=== PATIENT | female | born 1950 | race Caucasian/White ===

== ENCOUNTER 2018-10-15 06:17 | Day surgery (SDC) | payer BC, MEDICARE ==
[2018-10-15] MEDS ORDERED: Lidocaine 2% Jelly 30 ML Tube ONE (06:42)
[2018-10-15] MEDS ORDERED: Lidocaine 1% with EPINEPHrine 1:100,000 50 ML MDV ONE (06:43)
[2018-10-15] MEDS ORDERED: Bupivacaine 0.5% 50 ML MDV ONE (06:43)
[2018-10-15] MEDS ORDERED: fentaNYL 100 MCG/2 ML SDV ONE (07:02)
[2018-10-15] MEDS ORDERED: Propofol 200 MG/20 ML SDV ONE (07:03)
[2018-10-15] MEDS ORDERED: Midazolam 1 MG/ML 2 ML SDV ONE (07:03)
[2018-10-15] MEDS ORDERED: Sodium Chloride 0.9% 1,000 ML IV SCH (07:15)
[2018-10-15] MEDS ORDERED: ceFAZolin 2 GM in Sodium Chloride 0.9% 50 ML IV ONE (07:30)
[2018-10-15 09:23] VITALS: BP 135/76; PULSE 53
--- NOTE | 2018-10-15 13:03 | OR ---
DATE OF PROCEDURE: 10/15/2018 PROCEDURE: 1. Left leg hematoma evacuation. 2. Debridement left leg, area debrided 3 sq cm, full thickness. 3. Wound VAC placement less than 50 sq cm. COMPLICATIONS: None. SOLUTION DESIGN ENGINEER: None. PREOPERATIVE DIAGNOSIS: Hematoma. POSTOPERATIVE DIAGNOSIS: Hematoma. RISKS: Risks, benefits, alternatives, and limitations including, but not limited to infection, bleeding, requirement for reoperation, chronic wound infections, and other risks not listed here were explained to the patient, and they understand the risks and wished to proceed. PROCEDURE IN DETAIL: The patient was placed in supine position. The left leg was prepped and draped. Using the Pia, I was able to dissect it down to the hematoma. A moderate amount of blood was noted. No signs of infection. This was then suctioned and irrigated. Debridement of the necrotic tissue was then performed using electrocautery to the aforementioned size. Once this was completed, this was thoroughly irrigated. The wound VAC was then placed in standard fashion with the black sponge cut to size, not contacting the normal skin, overly film and track pad. The patient tolerated the procedure well. Emir Bill MD /[id number]
== END 2018-10-15 09:45 | disposition home or self-care (01) ==
LOC: JP.SDS 06:17
PROVIDERS: ATTEND Surgery
DX: S80.12XA Contusion of left lower leg, initial encounter (principal); I10 Essential (primary) hypertension; E78.5 Hyperlipidemia, unspecified; E03.9 Hypothyroidism, unspecified; E66.9 Obesity, unspecified; X58.XXXA Exposure to other specified factors, initial encounter; Z68.38 Body mass index [BMI] 38.0-38.9, adult
CPT/HCPCS: 10140; 15002; 97605; J0690; J2250; J2704; J3010; J7030; J7050; J3490